=== PATIENT | male | born 1980 | race Caucasian/White ===

== ENCOUNTER → 2023-12-15 | Outpatient (CLI) | payer OTHER ==
[~2023-12-15] MED LIST: CIALIS5 MG; FLOMAX 0.40.4 MG/CAP; FLONASEALLERGY NS; LEXAPRO 10MG10 MG PO; VALTREX 50500 MG/TAB PO; VTAMINC250TA; ZYRTEC 10MG10 MG PO
== END ==
LOC: MHCPAIN 08:25
DX: M54.50 Low back pain, unspecified (principal); G57.11 Meralgia paresthetica, right lower limb; E78.5 Hyperlipidemia, unspecified; N28.1 Cyst of kidney, acquired
CPT/HCPCS: G0463

== ENCOUNTER → 2023-12-31 | Outpatient (CLI) | payer OTHER | LOC: MHCPAIN 08:43 | DX: M47.817 Spondylosis without myelopathy or radiculopathy, lumbosacral region (principal); M54.50 Low back pain, unspecified | CPT/HCPCS: J0665 ==

== ENCOUNTER → 2024-01-12 | Outpatient (CLI) | payer OTHER | LOC: MHCPAIN 14:29 | DX: M51.26 Other intervertebral disc displacement, lumbar region (principal); M48.061 Spinal stenosis, lumbar region without neurogenic claudication; G57.11 Meralgia paresthetica, right lower limb; N28.1 Cyst of kidney, acquired; E78.5 Hyperlipidemia, unspecified; Z87.820 Personal history of traumatic brain injury | CPT/HCPCS: G0463 ==

== ENCOUNTER → 2024-02-15 | Outpatient (CLI) | payer OTHER | LOC: MHCPAIN 09:36 | DX: M51.27 Other intervertebral disc displacement, lumbosacral region (principal); M48.061 Spinal stenosis, lumbar region without neurogenic claudication; M51.36 Other intervertebral disc degeneration, lumbar region; G57.11 Meralgia paresthetica, right lower limb; N28.1 Cyst of kidney, acquired | CPT/HCPCS: G0463 ==

== ENCOUNTER → 2024-03-07 | Outpatient (CLI) | payer OTHER ==
[~2024-03-07] MED LIST changes: +Lidocaine PF 2% (20 MG/ML) 5 ML VIAL ONE; +Midazolam 2 MG/2 ML VIAL ONE; +fentaNYL 50 MCG/ML 2 ML VIAL ONE
== END ==
LOC: MHCPAIN 11:03
DX: M47.817 Spondylosis without myelopathy or radiculopathy, lumbosacral region (principal); M54.50 Low back pain, unspecified
CPT/HCPCS: J0665; J2250; J3010